=== PATIENT | female | born 1960 | race Caucasian/White ===

== ENCOUNTER 2023-04-05 09:59 | Outpatient (CLI) | payer OTHER, SELFPAY ==
--- NOTE | ~2023-04-05 | MR_ITS ---
MRI of the left foot HISTORY: Open wound TECHNIQUE: Sagittal T1-weighted and STIR images, axial T1-weighted and T2 fat-sat images, and coronal T1-weighted and T2 fat-sat images were performed. Following intravenous administration of 16 cc Mult iHance gadolinium, T1-weighted fat-sat imaging was performed in the axial, coronal, and sagittal plan es. 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 There is moderat e osteophyte formation at the distal aspect of the first metatarsal and of the sesamoid metatarsal ar ticulations. There is marrow edema at the fifth metatarsal head with minimal amorphous hypointense T1 signal. Remaining bone marrow signals in the visualized foot are unremarkable. There are mild degene rative changes at the second and third metatarsophalangeal joints. No joint effusion identified. Visualized flexor and extensor tendons are intact aside from changes related to first digit amputatio n. There is mild edematous change of the intrinsic plantar musculature of the foot. Visualized planta r fascia is intact. No abscess identified. IMPRESSION: Possible early/mild osteomyelitis of the fifth metatarsal head. Prior amputation of the phalanges of the great toe. Degenerative changes, as detailed above. Nonspecific myositis the plantar musculature of the foot, a common finding in a diabetic foot. Reviewed, dictated and finalized at [facility].
== END 2023-04-05 10:00 | disposition home or self-care (01) ==
LOC: ANHIMG 10:06
PROVIDERS: PCP Internal Medicine Infectious Disease
DX: S91.302D Unspecified open wound, left foot, subsequent encounter (principal); X58.XXXD Exposure to other specified factors, subsequent encounter
CPT/HCPCS: 73720; A9577

== ENCOUNTER 2023-04-14 12:14 | Outpatient (CLI) | payer OTHER, SELFPAY ==
--- NOTE | ~2023-04-14 | PE_ITS ---
EXAMINATION: PET skull to mid thigh DATE: 04/14/2023 15:06 INDICATION: Lung nodule. TECHNIQUE: Blood glucose level was 88 mg/dL. 10.097 mCi of 18-fluorodeoxyglucose (18-FDG) was adminis tered i.v. Low dose computed tomography (CT) images were acquired from the base of the brain to the p roximal thighs for attenuation correction and anatomic localization. Automated exposure control was e mployed. Dose-length product (DLP) was 662 mGy-cm. Positron emission tomography (PET) images were acq uired in the same distribution. COMPARISON: None FINDINGS: Head/neck: There are old infarcts involving the right frontal and parietal lobes, right insula, and r ight occipital lobe. There is an old infarct involving left parietal lobe. There is an old infarct in left thalamus. There are no pathologically enlarged lymph nodes. Left thyroid lobe is enlarged with increased activity. There are changes of anterior fusion procedure at C6-C7. Chest: There is mild atelectasis bilaterally. There is a 4 mm nodule in left lower lobe. Calcified le ft hilar lymph nodes are consistent with old granulomatous disease. There is a 4 mm nodule in right l ower lobe. There are multiple nodules with increase activity associated with groundglass opacities in right upper lobe. The largest nodule measures 1.8 cm with maximum SUV of 9.5. There is right hilar a nd mediastinal lymphadenopathy with increased activity. For example, a right paratracheal node measur es 11 x 14 mm with maximum SUV of 4.7. No pleural effusion. The heart size is normal. There are coron mohini artery calcifications. No pericardial effusion. There is severe thoracic spondylosis. There is mi ld chronic anterior wedging of multiple vertebral bodies. Abdomen/pelvis/proximal thighs: The liver demonstrates surface nodularity, consistent with cirrhosis. Calcifications in the liver and spleen are consistent with old granulomatous disease. The gallbladde r, pancreas, adrenal glands, and kidneys are normal. There is no urolithiasis. There is calcified ath erosclerosis of the aorta and many of the other arteries. There are no dilated loops of bowel. The ap pendix is normal. There are no pathologically enlarged lymph nodes. There is no free intraperitoneal fluid. There is severe lumbar spondylosis. IMPRESSION: 1. Right lung upper lobe nodules and right hilar and mediastinal lymphadenopathy with increased activ ity. These findings may be infection and/or malignancy. If there is no comparison outside CT, conside r noncontrast chest CT in one month. 2. Old infarcts in the brain. 3. Cirrhosis of the liver. 4. Enlarged left thyroid lobe with increased activity. Thyroid ultrasound is recommended. Reviewed, dictated and finalized at location [facility]. IMPRESSION: 1. Right lung upper lobe nodules and right hilar and mediastinal lymphadenopath y with increased activity. These findings may be infection and/or malignancy. I f there is no comparison outside CT, consider noncontrast chest CT in one month . 2. Old infarcts in the brain. 3. Cirrhosis of the liver. 4. Enlarged left thyroid lobe with increased activity. Thyroid ultrasound is re commended.
[2023-04-14 12:43] LABS: Glucose Point of Care 88 mg/dl (65-105)
== END 2023-04-14 12:15 | disposition home or self-care (01) ==
PROVIDERS: PCP Internal Medicine Infectious Disease; Visit Provider Internal Medicine Infectious Disease
DX: R93.89 Abnormal findings on diagnostic imaging of other specified body structures (principal); R91.8 Other nonspecific abnormal finding of lung field; K74.60 Unspecified cirrhosis of liver; E04.9 Nontoxic goiter, unspecified; Z86.73 Personal history of transient ischemic attack (TIA), and cerebral infarction without residual deficits
CPT/HCPCS: 78815; A9552